=== PATIENT | female | born 1955 | race Caucasian/White ===

== ENCOUNTER 2018-06-20 11:20 | Day surgery (SDC) | payer MEDICARE, OTHER ==
[~2018-06-20] VITALS: Ht 175.3 cm; Wt 111.9 kg
[~2018-06-20 11:20] MED LIST: ALTACE 10MG TAB10 MG PO; ASPIRIN E.C. 8181 MG PO; CALCIUM600 M2 PO; COLACE 100100 MG/CAP PO; MICROZIDE12.5 MG PO; MULTIVITAMIN FO1 CAP PO; PERCOCET 325 MG1 TA2 PO; PRILOSEC 20MG20 MG PO
[2018-06-20 11:45] VITALS: BP 113/78; PULSE 84; TEMP 97.7
[2018-06-20] MEDS ORDERED: NEXIUM 24HR20 M1 PO (11:48)
[2018-06-20] MEDS ORDERED: METROCREAM CREA45 GM TP (11:49)
[2018-06-20] MEDS ORDERED: BENTYL 10MG10 MG/CAP PO (13:26)
[2018-06-20 13:35] VITALS: BP 139/66; PULSE 76
[2018-06-20 13:50] VITALS: BP 113/72; PULSE 67
[2018-06-20 14:05] VITALS: BP 113/71; PULSE 60
== END 2018-06-20 14:20 | disposition home or self-care (01) ==
LOC: SDCO 11:20
DX: K29.30 Chronic superficial gastritis without bleeding (principal); K64.0 First degree hemorrhoids; R19.7 Diarrhea, unspecified; K21.9 Gastro-esophageal reflux disease without esophagitis; K44.9 Diaphragmatic hernia without obstruction or gangrene; D50.8 Other iron deficiency anemias; Z85.528 Personal history of other malignant neoplasm of kidney; Z79.82 Long term (current) use of aspirin
CPT/HCPCS: J2250; J3010; J7030

== ENCOUNTER 2019-05-01 09:02 | Outpatient (CLI) | payer MEDICARE, OTHER ==
[~2019-05-01] VITALS: Ht 175.3 cm; Wt 107.5 kg
[2019-05-01] VITALS (16 sets, daily range): BP systolic 145–176; BP diastolic 74–96; PULSE 51–73; TEMP 97.9
[~2019-05-01 09:02] MED LIST changes: +BENTYL 10MG10 MG/CAP PO; +METROCREAM CREA45 GM TP; +NEXIUM 24HR20 M1 PO; +OCUVITE1 TA1 PO
--- NOTE | 2019-05-01 09:50 | NUR ---
Pt to ct per ambulation. Pt positioned supine on table, monitors applied and O2 at 2l/nc.
--- NOTE | 2019-05-01 10:00 | NUR ---
Dr Tong into room and talks with pt regarding procedure.
--- NOTE | 2019-05-01 10:12 | NUR ---
Specimens obtained by Dr Tong and placed in formalin. Specimen labeled.
--- NOTE | 2019-05-01 10:30 | NUR ---
Pt arrived to room 9,observed alert and orientated x 3,respirations even and unlabored.pt arrived on 2l oxygen via nasal cannula.report from Hitesh Quiles.
--- NOTE | 2019-05-01 13:15 | NUR ---
Pt has ambulated, voided and peggy PO intake s n/v. PIV removed with catheter intact.
--- NOTE | 2019-05-01 13:30 | NUR ---
Pt discharged per w/c by nurse with sister.
== END 2019-05-01 14:09 | disposition home or self-care (01) ==
LOC: COL.RAD 09:02
DX: C64.1 Malignant neoplasm of right kidney, except renal pelvis (principal); R91.1 Solitary pulmonary nodule
CPT/HCPCS: J2250; J3010